=== PATIENT | female | born 1985 | race Two or more races ===

== ENCOUNTER 2019-03-14 09:36 | Emergency (ER) | payer SELFPAY ==
[~2019-03-14] VITALS: Ht 154.9 cm; Wt 61.2 kg
[2019-03-14 10:10] LABS: BILIRUBIN,URINE NEGATIVE (NEG); CLARITY,URINE CLOUDY; COLOR,URINE YELLOW; NITRITE,URINE NEGATIVE (NEG); PROTEIN,URINE NEGATIVE (NEG-TRACE); UROBILINOGEN,URINE 0.2 mg/dL (0.2 mg/dL)
[2019-03-14 10:18] LABS: AMPHETAMINE/METHAMPHETAMINE NEG (NEG); BARBITURATES NEG (NEG); BENZODIAZEPINES NEG (NEG); CANNABINOIDS NEG (NEG); COCAINE POS (NEG); METHADONE NEG (NEG); OPIATES NEG (NEG); PHENCYCLIDINE NEG (NEG)
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
[2019-03-14 10:30] LABS: BACTERIA,URINE 0 /HPF (0-FEW); HYALINE CASTS, URINE OCCASIONAL /HPF; RBC,URINE 0 /HPF (0-2); SQUAMOUS EPITHELIAL CELL,UR MOD /LPF; WBC,URINE OCC /HPF (0-4)
[2019-03-14] MEDS ORDERED: cefTRIAXone IM 250 MG VIAL IM ONE (10:30)
[2019-03-14] MEDS ORDERED: AZITHROMYCIN 250 MG TABLET. PO ONE (10:30)
[2019-03-14] MEDS ORDERED: IV NORMAL SALINE 1000ML BAG 1,000 ML IV ONE (10:30)
[2019-03-14] MEDS ORDERED: ONDANSETRON PF 4 MG/2 ML VIAL. IVP ONE ×2 (10:30→11:15)
[2019-03-14 10:42] LABS: BASO # 0.1 x10^3/uL (0.0-0.2); BASO % 1 % (0-3); EOS % 0 % (0-3); HEMATOCRIT 41.5 % (36.0-47.0); HEMOGLOBIN 14.2 g/dL (12.0-15.5); LYMPH # 1.5 x10^3/uL (1.0-4.8); LYMPH % 26 % (24-48); MEAN CORPUSCULAR HEMOGLOBIN 30 pg (25-35); MEAN CORPUSCULAR HGB CONC 34 g/dL (31-37); MEAN CORPUSCULAR VOLUME 87 fL (79-100); MONO # 0.3 x10^3/uL (0.0-1.1); MONO % 5 % (0-9); NEUT % 68 % (31-73); PLATELET COUNT 413 x10^3/uL (140-400); RED BLOOD COUNT 4.77 x10^6/uL (3.50-5.40); RED CELL DISTRIBUTION WIDTH 13.9 % (11.5-14.5); WHITE BLOOD COUNT 5.8 x10^3/uL (4.0-11.0)
[2019-03-14 11:40] LABS: CALCIUM 9.1 mg/dL (8.5-10.1); GFR 63.1
[2019-03-14 11:46] LABS: ALBUMIN 4.3 g/dL (3.4-5.0); ALBUMIN/GLOBULIN RATIO 1.1 (1.0-1.7); TOTAL BILIRUBIN 0.2 mg/dL (0.2-1.0); TOTAL PROTEIN 8.1 g/dL (6.4-8.2)
[2019-03-14] MEDS ORDERED: METR-34 PO (11:56)
[2019-03-14 12:07] VITALS: BP 122/69
[2019-03-16 19:09] LABS: GC PROBE Negative (Negative)
== END 2019-03-14 12:24 | disposition home or self-care (01) ==
LOC: ER 09:36
DX: T74.21XA Adult sexual abuse, confirmed, initial encounter (principal); R11.2 Nausea with vomiting, unspecified; N76.0 Acute vaginitis; B96.89 Other specified bacterial agents as the cause of diseases classified elsewhere; R55 Syncope and collapse; Z88.5 Allergy status to narcotic agent; Z88.6 Allergy status to analgesic agent; Y08.89XA Assault by other specified means, initial encounter
CPT/HCPCS: 36415; 80053; 80307; 81001; 81025; 85025; 87491; 87591; 96361; 96372; 96374; 96376; 99285; G0480; J0696; J2405; J7030; Q0111; Q0144